=== PATIENT | female | born 1950 | race Caucasian/White ===

== ENCOUNTER 2022-06-29 15:58 | Emergency (ER) | payer OTHER ==
[~2022-06-29] VITALS: Ht 162.6 cm; Wt 77.1 kg
[~2022-06-29 15:58] MED LIST: AMIT25TA9 PO; AMLO5TAB4 PO; APIX2.5T PO; LOSA50TA28 PO; METO25TA3 PO; PRO20 PO; PRO40 PO; ROSU10TA2 PO; TEMA15CA5 PO; ZAN4 PO
[2022-06-29 16:30] VITALS: BP_SYST 148
--- NOTE | 2022-06-29 16:46 | NUR ---
ER at bedside examining patient.
--- NOTE | 2022-06-29 16:56 | NUR ---
pt presents to ED wtih report of left knee pain. pt reports knee replacement last week, started to have pain and states "feels like im stepping on a golf ball" when walking. pt resting in gurney with hob elevated, breathing even and unlabored. no acute distress noted. pt placed on cm . no changes at this time. daughter at bedside
--- NOTE | 2022-06-29 18:22 | NUR ---
pt awake, a/o x4 and verbally responsive. no acute distress noted, breathing even and unlabored. daughter at bedside. pt reports pain 9/10 when she moves, when shes still no pain. pt sitting upright in gurney in position of comfort. safety measures in place. no changes at this time
--- NOTE | 2022-06-29 19:34 | NUR ---
discharge instruction provided to pt, pt denied any questions and verbalized understanding. daughter at bedside and verbalized understanding of discharge instructions
[2022-06-29 19:36] VITALS: BP_SYST 153
== END 2022-06-29 19:36 | disposition home or self-care (01) ==
LOC: SED 15:58
DX: R22.42 Localized swelling, mass and lump, left lower limb (principal); M72.2 Plantar fascial fibromatosis; M79.662 Pain in left lower leg; M79.672 Pain in left foot; Z88.5 Allergy status to narcotic agent; Z79.899 Other long term (current) drug therapy
CPT/HCPCS: 93971; 99284

== ENCOUNTER 2022-07-03 14:44 | Inpatient (IN) | payer OTHER ==
[~2022-07-03] VITALS: Ht 160 cm; Wt 86.2 kg
[2022-07-03 14:45] VITALS: BP_SYST 153
--- NOTE | 2022-07-03 14:45 | NUR ---
PT BIB DAUGHTER AND AMBULATED TO BED 3. PT IS A&Ox4 AND ABLE TO MAKE NEEDS KNOWN. PT'S CHIEF COMPLAINT POST SURGICAL COMPLICATON. PT STATES HAD TOTAL KNEE REPLACEMENT ON 06/24/[address] WAS ADVIS[address] BY DR TO COME TO ER DUE TO A POSSIBLE ALLERGIC REACTION DUE TO THE GLUE USED ON INCISION. PT C/O PAIN RATIG 11/02 AND DESCRIBES IT ACHY. EDEMA AND BRUSING NOTED ON LEFT LOWER LEG. PT HAS A HISTORY OF HTN, HYPERLIPIDEMIA, AND THYROID DISEASE.
--- NOTE | 2022-07-03 14:50 | NUR ---
Patient triaged and placed in waiting room. VSS and patient appears in no acute distress at this time. Accompanied by DAUGHTER, awaiting available bed, and MD notified of need for MSE.
--- NOTE | 2022-07-03 15:12 | NUR ---
ER Dr.Dela Mace at bedside examining patient.
[2022-07-03] MEDS ORDERED: DEXAMETHASONE SOD PHOSPHATE 10 MG/ML VIAL IVP ONE (15:45)
[2022-07-03] MEDS ORDERED: DIPHENHYDRAMINE INJ 50 MG/ML VIAL IVP ONE (15:45)
--- NOTE | 2022-07-03 15:57 | NUR ---
COVID AND MRSA COMPLETED, LABELED, AND TAKEN TO LAB
--- NOTE | 2022-07-03 16:15 | NUR ---
BROUGHT BACK TO BED #3 VIA WHEELCHAIR, PLACED IN BED AND REPORT GIVEN TO MATILDA
--- NOTE | 2022-07-03 16:36 | NUR ---
LAB AT BEDSIDE.
[2022-07-03 16:48] LABS: BASOPHILS % (AUTO) 0.5 % (0.0-2.0); EOSINOPHILS # (AUTO) 0.6 K/uL (0.0-0.4); EOSINOPHILS % (AUTO) 6.5 % (0.0-4.0); HEMATOCRIT 34.5 % (36-48); HEMOGLOBIN 11.9 g/dL (12.0-16.0); LYMPHOCYTES # (AUTO) 1.4 K/uL (1.0-5.5); LYMPHOCYTES % (AUTO) 16.9 % (20.5-51.5); MEAN CORPUSCULAR HEMOGLOBIN 29 pg (27-31); MEAN CORPUSCULAR HGB CONC 35 % (32-36); MEAN CORPUSCULAR VOLUME 83 fL (79.0-98.0); MONOCYTES # (AUTO) 0.8 K/uL (0.0-1.0); MONOCYTES % (AUTO) 9.8 % (1.7-9.3); NEUTROPHILS # (AUTO) 5.6 K/uL (1.8-7.7); NEUTROPHILS % (AUTO) 66.3 % (40.0-70.0); PLATELET COUNT (AUTO) 307 K/uL (130-430); RED BLOOD CELL COUNT(AUTO) 4.18 MIL/uL (4.2-6.2); RED CELL DISTRIBUTION WIDTH 13.4 % (9.0-15.0); WHITE BLOOD COUNT (AUTO) 8.5 K/uL (4.8-10.8)
[2022-07-03 16:50] LABS: ERYTHROCYTE SEDIMENTATION RATE 19 MM/HR (0-20)
[2022-07-03 17:04] LABS: ANION GAP 7 (5-15); CHLORIDE 97 mmol/L (98-107); CREATININE 0.71 mg/dL (0.55-1.30); GLUCOSE 120 mg/dL (70-99); UREA NITROGEN, BLOOD 11 mg/dL (8-21)
[2022-07-03 17:09] LABS: ALANINE AMINOTRANSFERASE 18 U/L (12-78); ALBUMIN 3.1 g/dL (3.4-4.8); ASPARTATE AMINOTRANSFERASE 16 U/L (10-37); C-REACTIVE PROTEIN QUANT 4.9 mg/dL (0-0.5)
--- NOTE | 2022-07-03 17:32 | NUR ---
Admit bed requested Patient will be admitted to care of . Admitted to MEDICAL SURGICAL unit. Diagnosis RIGHT KNEE CELLULITIS Inpatient (Yes or No) YES Observation (Yes or No) NO Orientation concerns or request close to nursing station (Yes or No) NO Covid Status PENDING On vent or bipap NO Isolation requirements PENDING Needs a sitter NO From Home (Yes or if No enter name of facility) YES Requires Dialysis (Yes or No) NO Med Rec Completed (Yes of No) PENDING
[2022-07-03] MEDS: MORPHINE 2 MG/ML INJ. SYRINGE IVP PRN ×2 (17:46→19:23)
--- NOTE | 2022-07-03 17:47 | NUR ---
MORPHINE 2MG IVP GIVEN FOR RIGHT KNEE PAIN 01/02, BENEDRYL AND DEXMETHASONE IVPS GIVEN ORDERED.
[2022-07-03] MEDS ORDERED: PRO40 PO (18:15)
[2022-07-03] MEDS ORDERED: METO25TA3 PO (18:15)
[2022-07-03] MEDS ORDERED: TRAM50TA2 PO (18:15)
[2022-07-03] MEDS ORDERED: LOSA50TA3 PO (18:15)
[2022-07-03] MEDS ORDERED: AMLO5TAB4 PO (18:15)
[2022-07-03] MEDS ORDERED: FLUO40CA8 PO ×2 (18:15)
[2022-07-03] MEDS ORDERED: APIX2.5T PO (18:15)
[2022-07-03] MEDS ORDERED: ROSU10TA2 PO (18:15)
[2022-07-03] MEDS ORDERED: AMIT25TA9 PO (18:15)
[2022-07-03] MEDS ORDERED: TEMA15CA5 PO (18:15)
[2022-07-03] MEDS ORDERED: ZAN4 PO (18:15)
[2022-07-03] MEDS ORDERED: OXYIR5 PO (18:18)
--- NOTE | 2022-07-03 18:18 | NUR ---
MED REC COMPLETED.
--- NOTE | 2022-07-03 19:25 | NUR ---
PT STABLE. ENDORSED PT TO JAMEL NAVARRO. ALL QUESTIONS AND CONCERNS ANSWERED.
--- NOTE | 2022-07-03 19:33 | NUR ---
PT C/O RIGHT LEG PAIN RATING 7/10. MORPHINE 2MG GIVEN IVP BY JAMEL GREY
--- NOTE | 2022-07-03 19:43 | NUR ---
assisted patient to bedside commode
--- NOTE | 2022-07-03 20:55 | NUR ---
Patient will be admitted to care of Dr. Brown. Admitted to candace surg unit. Will go to room 121B. Belongings list completed. Complete and up to date summary report printed. SBAR report to be given at bedside with opportunity for questions.
[2022-07-03 21:12] VITALS: BP_SYST 150
--- NOTE | 2022-07-03 22:56 | NUR ---
HIGH ALERT NOTE: Called Dr. MAYFIELD back at identified within the medical roster to verify physician authenticity OF ELIQUIS 2.5MG PO X1 NOW AND OXYCODONE 5/325MG PO Q 6HRS FOR MODERATE PAIN PRN .
[2022-07-03] MEDS ORDERED: APIXABAN 2.5 MG TABLET PO ONE (23:00)
[2022-07-03] MEDS: OXYCODONE/ACETAMINOPHEN 5-325 TABLET PO PRN (23:33)
--- NOTE | 2022-07-03 23:51 | NUR ---
PT ADMITTED FROM ED AROUND 2200, AOX4, EVEN AND UNLABORED BREATHING, DENIED SOB, CP. N/V. C/O L KNEE CONTINUOS PAIN, STATED THE MORPHINE SHE GOT DID NOT HELP. L KNEE ELEVATED WITH PILLOW TO EASE PAIN, ALSO COLD COMPRESS APPLIED. PT STATED SHE WOULD LIKE TO GET OXYCODONE/TYLENOL BECAUSE IT WORKS FOR HER, ALSO REQUESTED TO GET ELIQUIS 2.5MG, SHE GETS 5MG DAILY, ALREADY 2.5MG IN THE MORNING. PT VOIDING, LAST BM ON 07/01/22, HAD BEDSIDE COMMODE. PT WAS ORIENTED TO ROOM, USE OF CALL LIGHT, LOW BED, FALL PREC MEASURES, INSTRUCTED TO CALL FOR ASSISTED WHEN GETTING OOB, PT VERBALIZED UNDERSTANDING, CALLED DR MAYFIELD AROUND 2300 FOR PAIN MED AND ELIQUIS, ORDERED ONE TIME DOSE OF ELIQUIS AND OXYCODONE/TYLENOL 5/325MG PRN Q 6HRS. ORDER PLACED AND CARRIED OUT. WILL CONTINUE WITH CARE PLAN
[2022-07-04 00:40] VITALS: BP_SYST 135
--- NOTE | 2022-07-04 02:28 | NUR ---
DR TRAN OLMOS , PT REQUESTING FOR SLEEPING PILL .
--- NOTE | 2022-07-04 04:09 | NUR ---
Consultation Paged Reason for Consultation: right knee cellulitis Was consult called: Y Person who was notified: Sarah Consulting Physician: Dr. Bardales Ordering Physician: Tomas Blum
--- NOTE | 2022-07-04 04:42 | NUR ---
Consultation Paged Reason for Consultation: right knee cellulitis Was consult called: Y Person who was notified: Sarah Consulting Physician: Adriano Ceballos (Dr. Singh is construction carpenters helper) Ordering Physician: Tomas Blum
--- NOTE | 2022-07-04 06:36 | NUR ---
PT AOX4, EVEN AND UNLABORED BREATHING, DENIED SOB, CP, OR ANY PAIN AT THIS TIME, L KNEE SWOLLEN AND ELEVATED WITH A PILLOW, PAIN CONTROLLED WITH OXYCODONE DURING THE SHIFT AND PER PT IT WAS EFFECTIVE, TOLERATING REGULAR DIET, USING BEDSIDE COMMODE, VOIDING W/O DIFFICULTY, SAFETY PREC MAINTAINED, CALL LIGHT WITHIN EASY REACH, WILL BE ENDORSED TO INCOMNG RN
[2022-07-04 08:00] VITALS: BP_SYST 128
[2022-07-04] MEDS ORDERED: HYDROCORTISONE 1%, 28.35 GM TOPICAL CREAM TP PRN (08:15)
[2022-07-04] MEDS ORDERED: DIPHENHYDRAMINE HCL 12.5 MG/5 ML UDC PO ONE (08:15)
[2022-07-04] MEDS: ceFAZolin SODIUM 2 GM in D5W 100 ML IV SCH ×3 (09:00→23:10)
[2022-07-04] MEDS: LOSARTAN POTASSIUM 50 MG TABLET (COZAAR) PO SCH (09:00)
[2022-07-04] MEDS: METOPROLOL SUCCINATE 25 MG TAB.SR.24H (TOPROL XL) PO SCH (09:00)
[2022-07-04 12:00] VITALS: BP_SYST 110
[2022-07-04] MEDS ORDERED: APIXABAN 2.5 MG TABLET PO ONE (13:30)
--- NOTE | 2022-07-04 15:20 | NUR ---
Contacted Meghan/OMAR at [facility] regarding DC order. Pt is asking for DC with either home health or rehab. Left a VM.Will F/U.
[2022-07-04] MEDS ORDERED: METHYLPREDNISOLONE SOD SUCC 40 MG/ML VIAL IVP ONE (15:45)
[2022-07-04] MEDS ORDERED: FLUoxetine HCL 20 MG CAPSULE (PROzac) PO ONE (17:00)
[2022-07-04] MEDS: OXYCODONE/ACETAMINOPHEN 5-325 TABLET PO PRN ×3 (17:53→23:23)
[2022-07-04 18:01] VITALS: BP_SYST 118
[2022-07-04] MEDS: amLODIPine BESYLATE 5 MG TABLET PO SCH (21:00)
[2022-07-04] MEDS: tiZANidine HCL 4 MG TABLET PO SCH (21:00)
[2022-07-04] MEDS: METHYLPREDNISOLONE SOD SUCC 40 MG/ML VIAL IVP SCH (21:00)
[2022-07-04] MEDS: ATORVASTATIN 20 MG TABLET PO SCH (21:00)
[2022-07-04] MEDS: AMITRIPTYLINE HCL 25 MG TABLET (ELAVIL) PO SCH (21:00)
[2022-07-04] MEDS: APIXABAN 2.5 MG TABLET PO SCH (21:00)
[2022-07-04] MEDS ORDERED: ROSUVASTATIN CALCIUM 5 MG/TAB (CRESTOR) PO SCH (21:00)
[2022-07-04] MEDS: TEMAZEPAM 15 MG CAPSULE PO SCH (21:07)
[2022-07-05] VITALS: BP_SYST 148
[2022-07-05] MEDS ORDERED: HYDC1% TP (07:23)
[2022-07-05] MEDS ORDERED: DOXY-244 PO (07:25)
[2022-07-05] MEDS ORDERED: DIPH25TA62 PO (07:27)
--- NOTE | 2022-07-05 07:37 | NUR ---
safety precaution observed,not in distress, VSS, erythema noted to the left knee, antibiotics tolerated well, denies pain or discomfort this morning, BSC, voided well, will endorse care to oncoming RN.
[2022-07-05 08:00] VITALS: BP_SYST 151
[2022-07-05] MEDS: FLUoxetine HCL 20 MG CAPSULE (PROzac) PO SCH ×2 (08:43→20:17)
[2022-07-05] MEDS: LOSARTAN POTASSIUM 50 MG TABLET (COZAAR) PO SCH (08:44)
[2022-07-05] MEDS: METOPROLOL SUCCINATE 25 MG TAB.SR.24H (TOPROL XL) PO SCH (08:44)
[2022-07-05] MEDS: APIXABAN 2.5 MG TABLET PO SCH ×2 (08:45→20:24)
[2022-07-05] MEDS: METHYLPREDNISOLONE SOD SUCC 40 MG/ML VIAL IVP SCH ×2 (08:46→20:22)
[2022-07-05 12:00] VITALS: BP_SYST 142
[2022-07-05] MEDS: ceFAZolin SODIUM 2 GM in D5W 100 ML IV SCH (14:00)
[2022-07-05 16:00] VITALS: BP_SYST 128
[2022-07-05] MEDS: OXYCODONE/ACETAMINOPHEN 5-325 TABLET PO PRN ×2 (16:17→20:16)
[2022-07-05 19:00] VITALS: BP_SYST 130
[2022-07-05] MEDS: AMITRIPTYLINE HCL 25 MG TABLET (ELAVIL) PO SCH (20:17)
[2022-07-05] MEDS: TEMAZEPAM 15 MG CAPSULE PO SCH (20:17)
[2022-07-05] MEDS: amLODIPine BESYLATE 5 MG TABLET PO SCH (20:21)
[2022-07-05] MEDS: ATORVASTATIN 20 MG TABLET PO SCH (20:21)
[2022-07-05] MEDS: tiZANidine HCL 4 MG TABLET PO SCH (20:44)
--- NOTE | 2022-07-05 21:00 | NUR ---
PATIENT IS ALERT AND VERBALLY RESPONSIVE. A&O X4 ABLE TO MAKE NEEDS KNOWN. STABLE AND AFEBRILE. PATIENT ADMITTED WITH DX: L KNEE CELLULITIS. HX DVT, PE, HTN, ; L KNEE REPLACEMENT 06/24/2022. PATIENT BREATHING EVEN AND NON LABORED. NO SOB /DYSPNEA. NO COUGH NOTED. NO S/S RESPIRATORY DISTRESS. IV SITE RAC 20G IN PLACE/ PATENT SALINE LOCKED.IV DRESSING CLEAN/ DRY/ AND INTACT. IV ATB CONTINUED ORDERED FOR LEFT KNEE CELLULITIS. NO A/R NOTED. LEFT LEG WOUND CARE. HYDROCORTISONE CREAM APPLIED ORDERED TO L KNEE OLD INCISION SITE D/T PT C/O ITCHING AND CREAM EFFECTIVE. PATIENT CONTINUED ON PAIN MANAGEMENT PRN AND ROUTINE. PATIENT CURRENTLY DENIES PAIN. PATIENT REQUIRES LIMITED ASSIST WITH ADL'S AND TOILETING. USES BEDSIDE COMMODE.. CONTINENT B&B. ALL NEEDS MET. CALL LIGHT WITHIN REACH. CONTINUE PLAN OF CARE.
[2022-07-06] VITALS: BP_SYST 126
[2022-07-06 05:43] VITALS: BP_SYST 124
[2022-07-06 08:00] VITALS: BP_SYST 131
--- NOTE | 2022-07-06 08:11 | NUR ---
DR MOREAU AT BEDSIDE Dr Moreau at bedside to see the patient. Patient expressed a great desire to be discharged home. MD had extensive conversation with the patient regarding benefits of going to a facility, patient continued to wish to be discharged today. New orders received, patient verbalized understanding of the plan of care.
[2022-07-06] MEDS ORDERED: DIPHENHYDRAMINE HCL 12.5 MG/5 ML UDC PO ONE (08:30)
[2022-07-06] MEDS ORDERED: methylPREDNISolone 4 MG TABLET PO ONE (08:45)
--- NOTE | 2022-07-06 08:58 | NUR ---
ATTENDING MD DR MAYFIELD WAS CALLED RE: DISCHARGE ORDER. SPOKE TO BERNADETTE.
[2022-07-06] MEDS ORDERED: TRIAMCINOLONE ACETONIDE 0.1% 15 GM CREAM.GM. TP SCH (09:00)
[2022-07-06] MEDS ORDERED: COMMUNICATION ORDER XX ONE (09:00)
[2022-07-06] MEDS: METHYLPREDNISOLONE SOD SUCC 40 MG/ML VIAL IVP SCH (09:00)
[2022-07-06] MEDS: LOSARTAN POTASSIUM 50 MG TABLET (COZAAR) PO SCH (09:19)
--- NOTE | 2022-07-06 09:19 | NUR ---
WOUND CARE Wound care performed per MDs orders. Patient educated on process, verbalized understanding. Patient tolerated well.
[2022-07-06] MEDS: METOPROLOL SUCCINATE 25 MG TAB.SR.24H (TOPROL XL) PO SCH (09:20)
[2022-07-06] MEDS: FLUoxetine HCL 20 MG CAPSULE (PROzac) PO SCH (09:21)
[2022-07-06] MEDS: APIXABAN 2.5 MG TABLET PO SCH (09:22)
[2022-07-06 10:11] VITALS: BP_SYST 131
--- NOTE | 2022-07-06 11:54 | NUR ---
D/C Patient Patient given medication reconciliation form and D/C instructions. Exit Care provided. Patient verbalized understanding. MD discussed with patient the results and treatment provided. Ambulatory with assist for discharge to home via private auto with daughter. Patient in stable condition, ID band removed. IV catheter removed, intact and dressing applied, no active bleeding. Patient educated on pain management. All belongings sent with patient.
== END 2022-07-06 11:17 | disposition home or self-care (01) | DRG 607 ==
LOC: SED 14:44 → SMU 17:26
PROVIDERS: ADMIT Internal Medicine; ATTEND Internal Medicine
DX: L23.89 Allergic contact dermatitis due to other agents (principal); S90.822A Blister (nonthermal), left foot, initial encounter; M19.90 Unspecified osteoarthritis, unspecified site; E66.9 Obesity, unspecified; M72.2 Plantar fascial fibromatosis; Z53.29 Procedure and treatment not carried out because of patient's decision for other reasons; X58.XXXA Exposure to other specified factors, initial encounter; Z20.822 Contact with and (suspected) exposure to COVID-19; Z86.718 Personal history of other venous thrombosis and embolism; Z86.711 Personal history of pulmonary embolism; Z79.891 Long term (current) use of opiate analgesic; Z79.899 Other long term (current) drug therapy; Z68.33 Body mass index [BMI] 33.0-33.9, adult; Y93.9 Activity, unspecified; Y92.89 Other specified places as the place of occurrence of the external cause; Y99.8 Other external cause status
CPT/HCPCS: 36415; 80053; 85025; 85651-TC; 86140; 87040; 87081; 96374; 96375; 97116-GP; 97530-GP; 99285; J1030; J1100; J1200; J2270; J7060; J7509